=== PATIENT | female | born 1970 | race African-American/Black ===

== ENCOUNTER 2019-12-23 05:42 | Observation (INO) ==
[~2019-12-23 05:42] MED LIST: LACTATED RINGERS 1,000 ML IV SCH; ceFAZolin 1,000 MG VIAL ONE
[2019-12-23] MEDS ORDERED: LIDOCAINE 1%/EPI INJ 20 ML VIAL ONE (06:30)
[2019-12-23] MEDS ORDERED: BUPIVACAINE MPF 0.25% 30 ML VIAL ONE (06:30)
[2019-12-23] MEDS ORDERED: ceFAZolin 1,000 MG in SYRINGE 1 EACH IV ONE (06:30)
[2019-12-23] MEDS ORDERED: INDOCYANINE GREEN 25 MG VIAL IV ONE ×2 (06:42→06:57)
[2019-12-23] MEDS ORDERED: FAMOTIDINE 20 MG/2 ML VIAL IV ONE (07:09)
[2019-12-23] MEDS ORDERED: TISSUE ADHESIVE 1 EACH APPLICATOR TOP ONE (08:14)
[2019-12-23] MEDS ORDERED: propofoL 200 MG/20 ML VIAL IV ONE (08:36)
[2019-12-23] MEDS ORDERED: DESFLURANE 1 UNIT/15 MINUTE INH ONE (08:37)
[2019-12-23] MEDS ORDERED: MIDAZOLAM 2 MG/2 ML VIAL ONE (08:37)
[2019-12-23] MEDS ORDERED: KETOROLAC 30 MG/1 ML VIAL ONE ×2 (08:37→13:46)
[2019-12-23] MEDS ORDERED: ACETAMINOPHEN 1,000 MG/100 ML VIAL IV ONE (08:37)
[2019-12-23] MEDS ORDERED: SEVOFLURANE 1 UNIT/15 MINUTE INH ONE (08:37)
[2019-12-23] MEDS ORDERED: PHENYLEPHRINE 1 MG/10 ML SYRINGE IV ONE (08:37)
[2019-12-23] MEDS ORDERED: fentaNYL 100 MCG/2 ML VIAL ONE (08:37)
[2019-12-23] MEDS ORDERED: ONDANSETRON 4 MG/2 ML VIAL ONE ×3 (08:37→13:46)
[2019-12-23] MEDS ORDERED: GLYCOPYRROLATE 0.4 MG/2 ML VIAL ONE (08:37)
[2019-12-23] MEDS ORDERED: LIDOCAINE 2% 5 ML VIAL ONE (08:37)
[2019-12-23] MEDS ORDERED: ROCURONIUM 100 MG/10 ML VIAL IV ONE (08:38)
[2019-12-23] MEDS ORDERED: NEOSTIGMINE 10 MG/10 ML VIAL ONE (08:38)
[2019-12-23] MEDS ORDERED: HYDROmorphone 2 MG/1 ML VIAL ONE (08:50)
[2019-12-23] MEDS ORDERED: ONDANSETRON 4 MG/2 ML VIAL IV PRN ×2 (08:50→13:44)
[2019-12-23] MEDS: HYDROmorphone 2 MG/1 ML VIAL IV PRN ×4 (08:50→09:05)
[2019-12-23] MEDS ORDERED: LACTATED RINGERS 1,000 ML IV SCH ×2 (10:45→11:00)
[2019-12-23 11:30] LABS: HIV Antigen/Antibody Result Nonreactive (Nonreactive); Hepatitis B Surface Ag Quant < 0.10 Index; Hepatitis B Surface Ag Result Negative (Negative); Hepatitis C Virus Ab Quant 0.07 Index; Hepatitis C Virus Ab Result Negative (Negative)
[2019-12-23] MEDS ORDERED: DEXAMETHASONE 4 MG/1 ML VIAL IV STA (11:53)
[2019-12-23] MEDS ORDERED: SCOPOLAMINE 1.5 MG PATCH TRANSDERM STA (11:53)
[2019-12-23] MEDS ORDERED: SCOPOLAMINE 1.5 MG PATCH TRANSDERM ONE (11:56)
[2019-12-23] MEDS ORDERED: DEXAMETHASONE 4 MG/1 ML VIAL ONE (11:56)
[2019-12-23] MEDS: KETOROLAC 15 MG/1 ML VIAL IV PRN ×2 (13:45→17:20)
[2019-12-23] MEDS: LACTATED RINGERS 1,000 ML IV SCH (14:53)
[2019-12-23] MEDS ORDERED: ALBUTEROL/IPRATROPIUM 3 ML NEB RESP TX PRN (17:00)
[2019-12-23] MEDS ORDERED: BISACODYL 5 MG TABLET PO PRN (17:00)
[2019-12-23] MEDS ORDERED: ACETAMINOPHEN 325 MG TABLET PO PRN (17:00)
[2019-12-23] MEDS ORDERED: MORPHINE 4 MG/1 ML VIAL IV PRN ×2 (17:00)
[2019-12-23] MEDS ORDERED: GLUCAGON 1 MG VIAL IM PRN (17:03)
[2019-12-23] MEDS ORDERED: DEXTROSE 10% 250 ML BAG IV PRN (17:03)
[2019-12-23] MEDS: INSULIN LISPRO 100 UNIT/ML SUBCUT SCH (21:09)
[2019-12-24] MEDS: LACTATED RINGERS 1,000 ML IV SCH (00:56)
[2019-12-24] MEDS ORDERED: LEVOTHYROXINE 112 MCG TABLET PO SCH (07:00)
[2019-12-24] MEDS: INSULIN LISPRO 100 UNIT/ML SUBCUT SCH (08:51)
[2019-12-24 08:54] VITALS: BP 138/71
[2019-12-24] MEDS: KETOROLAC 15 MG/1 ML VIAL IV PRN (08:58)
[2019-12-24] MEDS ORDERED: LOSARTAN 25 MG TABLET PO SCH (09:00)
[2019-12-24] MEDS ORDERED: PANTOPRAZOLE 40 MG TABLET PO SCH (09:00)
[2019-12-24] MEDS ORDERED: Dapagliflozin [Farxiga] 5 MG PO SCH (09:00)
[2019-12-24] MEDS ORDERED: CITALOPRAM 20 MG TABLET PO SCH (09:00)
== END 2019-12-24 12:53 | disposition home or self-care (01) ==
LOC: N.OR 05:42 → N.3E 05:42 → N.SDSINP 05:46 → N.3E 14:52
PROVIDERS: ADMIT Surgery; ATTEND Surgery